=== PATIENT | female | born 1955 | race Caucasian/White ===

== ENCOUNTER 2017-10-03 17:02 | Inpatient (IN) | payer MEDICARE, MEDICAID ==
[~2017-10-03] VITALS: Ht 167.6 cm; Wt 88.7 kg
[2017-10-03] MEDS ORDERED: SODIUM CHLORIDE 0.9% 500 ML IVB ONE (17:12)
[2017-10-03] MEDS ORDERED: ONDANSETRON HCL 4 MG/2 ML VIAL IV ONE (17:15)
[2017-10-03 18:06] LABS: Urine Bacteria NONE SEEN /hpf (None Seen); Urine Blood Negative /uL (Negative); Urine Specific Gravity 1.005 (1.001-1.035); Urine WBC 1 /hpf (0 - 5)
[2017-10-03 18:21] LABS: Amphetamine Screen, Urine NEGATIVE (NEGATIVE); Barbiturate Scree,Urine NEGATIVE (NEGATIVE); Benzodiazephine Screen, Urine NEGATIVE (NEGATIVE); Cannabinoid Screen, Urine NEGATIVE (NEGATIVE); Cocaine Screen, Urine NEGATIVE (NEGATIVE); Opiate Scree,Urine NEGATIVE (NEGATIVE); Phencyclidine Screen, Urine NEGATIVE (NEGATIVE)
[2017-10-03 18:35] LABS: Basophils # (auto) 0 uL; Basophils % (auto) 0.3 % (0.0-2.0); Eosinophils # (auto) 0.2 uL; Eosinophils % (auto) 1.4 % (0.0-7.0); Hematocrit 36.7 % (36.0-46.0); Hemoglobin 12.3 g/dL (12.2-16.2); Lymphocytes % (auto) 21.3 % (10.0-50.0); Mean Corpuscular Hemoglobin 29.4 pg (28.0-32.0); Mean Corpuscular Hgb Conc. 33.5 g/dL (32.0-36.0); Mean Corpuscular Volume 87.8 fL (80.0-100.0); Monocytes # (auto) 0.6 uL; Monocytes % (auto) 4.2 % (0.0-12.0); Neutrophils # (auto) 10.1 uL; Neutrophils % (auto) 72.8 % (37.0-80.0); Nucleated Red Blood Cells % 0.1 %; Platelet Count (auto) 253 10^3/uL (140-450); Red Blood Cells 4.18 10^6/uL (4.0-5.20); Red Cell Distribution Width 12.9 % (11.8-14.3); White Blood Cell 13.9 10^3/uL (4.4-10.8)
[2017-10-03 18:54] LABS: Alanine Aminotransferase 21 U/L (13-56); Albumin 3.2 g/dL (3.4-5.0); Alkaline Phosphatase 91 U/L (45-117); Anion Gap 11 (5-15); Aspartate Aminotransferase 14 U/L (15-37); BUN/Creatinine Ratio 7.6; Bilirubin, Total 0.2 mg/dL (0.2-1.0); Blood Urea Nitrogen 9 mg/dL (7-18); Carbon Dioxide 23 mmol/L (21-32); Chloride 111 mmol/L (98-107); GFR African American 60 mL/min; GFR Non-African American 49 mL/min; Glucose 157 mg/dL (74-106); Magnesium 2.3 mg/dL (1.6-2.6); Potassium 3.4 mmol/L (3.5-5.1); Sodium 145 mmol/L (136-145); Total Protein 7.3 g/dL (6.4-8.2)
[2017-10-03] MEDS ORDERED: QUET200T3 PO (18:54)
[2017-10-03] MEDS ORDERED: DIVA500T53 PO (18:54)
[2017-10-03] MEDS ORDERED: GABA100C9 PO (18:55)
[2017-10-03] MEDS ORDERED: CARB200T4 PO (18:56)
[2017-10-03] MEDS ORDERED: CLON0.5T PO (19:00)
[2017-10-03 19:05] LABS: Lactic Acid w/Reflex 3.4 mmol/L (0.4-2.0)
[2017-10-03] MEDS ORDERED: DEXTROSE (50%) 50ML SYRG IV PRN (19:15)
[2017-10-03] MEDS ORDERED: NITROGLYCERIN 0.4 MG SL TAB SL PRN (19:15)
[2017-10-03] MEDS ORDERED: cefTRIAXone 1GM/10ml IVPUSH 10 ML IV ONE (19:15)
[2017-10-03] MEDS ORDERED: POTASSIUM CHL 10 Meq TABLET PO ONE (19:15)
[2017-10-03] MEDS ORDERED: DOCUSATE SOD 100 MG CAP PO PRN (19:15)
[2017-10-03] MEDS ORDERED: ALUM & MAG HYDROX-SIMETH LIQ(MAALOX) 30 ML PO PRN (19:15)
[2017-10-03] MEDS ORDERED: chlordiazePOXIDE HCL 25 MG CAP PO PRN (19:15)
[2017-10-03] MEDS ORDERED: MORPHINE SULFATE 4 MG/ML SYR/VIAL IV PRN ×2 (19:15)
[2017-10-03] MEDS ORDERED: ACETAMINOPHEN 325 MG TAB PO PRN (19:15)
[2017-10-03] MEDS ORDERED: TEMAZEPAM 15 MG CAP PO PRN (19:15)
[2017-10-03] MEDS: SODIUM CHLORIDE 0.9% 1,000 ML IV SCH (19:15)
[2017-10-03 20:25] LABS: Acetaminophen < 2.0 ug/mL (10-30); Salicylate < 1.7 mg/dL (2.8-20.0)
[2017-10-03] MEDS ORDERED: AZITHROMYCIN 500MG/ 250ML 250 ML IV ONE (20:45)
[2017-10-03] MEDS: FAMOTIDINE 20 MG TAB PO SCH (22:00)
[2017-10-03] MEDS ORDERED: InsuLIN REG 1unit/0.01ml Soln (100units/ml) SC SCH (22:00)
[2017-10-03] MEDS: GABAPENTIN 300 MG CAP PO SCH (22:00)
[2017-10-03] MEDS: ACCU-CHEK COMFORT CURVE STRIP VI SCH (22:00)
[2017-10-03] MEDS: ALBUTEROL SULF 2.5 MG/0.5ML(0.5%) NEB SOLN NEB SCH (22:20)
[2017-10-03] MEDS: IPRATROPIUM BROM 0.5 MG/2.5ML INH SOL NEB SCH (22:20)
[2017-10-03 22:39] VITALS: BP 93/55
[2017-10-04] MEDS: SODIUM CHLORIDE 0.9% 1,000 ML IV SCH ×2 (03:35→12:30)
[2017-10-04] MEDS: GABAPENTIN 300 MG CAP PO SCH (06:00)
[2017-10-04] MEDS: ALBUTEROL SULF 2.5 MG/0.5ML(0.5%) NEB SOLN NEB SCH ×3 (06:20→18:27)
[2017-10-04] MEDS: IPRATROPIUM BROM 0.5 MG/2.5ML INH SOL NEB SCH ×3 (06:20→18:27)
[2017-10-04 06:48] LABS: Basophils # (auto) 0.1 uL; Basophils % (auto) 0.9 % (0.0-2.0); Eosinophils # (auto) 0.2 uL; Eosinophils % (auto) 2.3 % (0.0-7.0); Hematocrit 33.8 % (36.0-46.0); Hemoglobin 11.6 g/dL (12.2-16.2); Lymphocytes # (auto) 2.4 uL; Lymphocytes % (auto) 30.5 % (10.0-50.0); Mean Corpuscular Hemoglobin 30.1 pg (28.0-32.0); Mean Corpuscular Hgb Conc. 34.3 g/dL (32.0-36.0); Mean Corpuscular Volume 87.9 fL (80.0-100.0); Monocytes # (auto) 0.5 uL; Monocytes % (auto) 5.8 % (0.0-12.0); Neutrophils # (auto) 4.8 uL; Neutrophils % (auto) 60.5 % (37.0-80.0); Platelet Count (auto) 237 10^3/uL (140-450); Red Blood Cells 3.84 10^6/uL (4.0-5.20); Red Cell Distribution Width 13.2 % (11.8-14.3); White Blood Cell 7.9 10^3/uL (4.4-10.8)
[2017-10-04 07:03] LABS: BUN/Creatinine Ratio 8.4; Bilirubin, Total 0.2 mg/dL (0.2-1.0); Calcium 8.3 mg/dL (8.5-10.1); Potassium 4.4 mmol/L (3.5-5.1); Total Protein 6.8 g/dL (6.4-8.2)
[2017-10-04] MEDS: InsuLIN REG 1unit/0.01ml Soln (100units/ml) SC SCH ×2 (08:00→12:34)
[2017-10-04] MEDS: ACCU-CHEK COMFORT CURVE STRIP VI SCH ×2 (08:40→12:30)
[2017-10-04] MEDS: Boost Glucose Control 8 Ounces PO SCH ×2 (08:43→12:30)
[2017-10-04] MEDS: cefTRIAXone 1GM/10ml IVPUSH 10 ML IV SCH (09:23)
[2017-10-04] MEDS: MULTIPLE VITAMIN TAB PO SCH (09:23)
[2017-10-04] MEDS: FAMOTIDINE 20 MG TAB PO SCH ×2 (09:23→22:21)
[2017-10-04] MEDS: AZITHROMYCIN 500MG/ 250ML 250 ML IV SCH (09:33)
[2017-10-04] MEDS: GABAPENTIN 100 MG CAP PO SCH ×2 (13:48→22:21)
[2017-10-04] MEDS: OXYBUTYNIN CHL 5 MG TAB PO SCH ×2 (13:48→22:21)
[2017-10-04] MEDS: clonazePAM 0.5 MG TAB PO SCH ×2 (13:48→20:52)
[2017-10-04] MEDS: BOOST PLUS 8 ounce PO SCH (18:04)
[2017-10-04] MEDS: QUEtiapine FUMARATE 100 MG TAB PO SCH (20:52)
[2017-10-04] MEDS: HYDROcodone-ACET 5/325MG TAB PO PRN (20:58)
[2017-10-04] MEDS: ONDANSETRON HCL 4 MG/2 ML VIAL IV PRN (21:49)
[2017-10-04] MEDS: ASCORBIC ACID 500 MG TAB PO SCH (22:21)
[2017-10-04] MEDS: carBAMazepine 200 MG TAB PO SCH (22:21)
[2017-10-04 23:46] VITALS: BP 129/75
[2017-10-05] MEDS: ALBUTEROL SULF 2.5 MG/0.5ML(0.5%) NEB SOLN NEB SCH ×4 (00:30→18:29)
[2017-10-05] MEDS: IPRATROPIUM BROM 0.5 MG/2.5ML INH SOL NEB SCH ×4 (00:30→18:28)
[2017-10-05 05:22] VITALS: BP 100/65
[2017-10-05] MEDS: OXYBUTYNIN CHL 5 MG TAB PO SCH ×3 (06:07→22:10)
[2017-10-05] MEDS: clonazePAM 0.5 MG TAB PO SCH ×3 (06:07→22:08)
[2017-10-05] MEDS: GABAPENTIN 100 MG CAP PO SCH ×3 (06:08→22:10)
[2017-10-05 07:38] LABS: BUN/Creatinine Ratio 13.4; Calcium 9.2 mg/dL (8.5-10.1); Potassium 3.9 mmol/L (3.5-5.1)
[2017-10-05 08:30] VITALS: BP 115/63
[2017-10-05] MEDS: BOOST PLUS 8 ounce PO SCH ×2 (09:42→18:00)
[2017-10-05] MEDS: AZITHROMYCIN 500MG/ 250ML 250 ML IV SCH (09:42)
[2017-10-05] MEDS: cefTRIAXone 1GM/10ml IVPUSH 10 ML IV SCH (09:42)
[2017-10-05] MEDS: carBAMazepine 200 MG TAB PO SCH ×2 (09:43→22:08)
[2017-10-05] MEDS: FAMOTIDINE 20 MG TAB PO SCH ×2 (09:43→22:10)
[2017-10-05] MEDS: MULTIPLE VITAMIN TAB PO SCH (09:43)
[2017-10-05] MEDS: ASCORBIC ACID 500 MG TAB PO SCH ×2 (09:44→22:10)
[2017-10-05 13:00] VITALS: BP 126/60
[2017-10-05] MEDS: HYDROcodone-ACET 5/325MG TAB PO PRN ×2 (13:06→17:59)
[2017-10-05] MEDS: ONDANSETRON HCL 4 MG/2 ML VIAL IV PRN (15:27)
[2017-10-05 17:00] VITALS: BP 121/61
[2017-10-05] MEDS: DOXYCYCLINE 100 MG TAB/CAP PO SCH (22:08)
[2017-10-05] MEDS: QUEtiapine FUMARATE 100 MG TAB PO SCH (22:10)
[2017-10-05 22:19] VITALS: BP 124/73
[2017-10-06] MEDS: ALBUTEROL SULF 2.5 MG/0.5ML(0.5%) NEB SOLN NEB SCH ×3 (00:25→13:05)
[2017-10-06] MEDS: IPRATROPIUM BROM 0.5 MG/2.5ML INH SOL NEB SCH ×3 (00:25→13:05)
[2017-10-06 04:29] VITALS: BP 129/78
[2017-10-06] MEDS: GABAPENTIN 100 MG CAP PO SCH ×2 (06:19→14:00)
[2017-10-06] MEDS: OXYBUTYNIN CHL 5 MG TAB PO SCH ×2 (06:20→14:00)
[2017-10-06] MEDS: clonazePAM 0.5 MG TAB PO SCH ×2 (06:20→14:00)
[2017-10-06] MEDS: BOOST PLUS 8 ounce PO SCH (09:41)
[2017-10-06] MEDS: carBAMazepine 200 MG TAB PO SCH (09:42)
[2017-10-06] MEDS: FAMOTIDINE 20 MG TAB PO SCH (09:42)
[2017-10-06] MEDS: MULTIPLE VITAMIN TAB PO SCH (09:42)
[2017-10-06] MEDS: ASCORBIC ACID 500 MG TAB PO SCH (09:43)
[2017-10-06] MEDS: DOXYCYCLINE 100 MG TAB/CAP PO SCH (09:43)
[2017-10-06] MEDS ORDERED: ASCO500T11 PO (11:46)
[2017-10-06] MEDS ORDERED: DOX100T PO (11:46)
[2017-10-06] MEDS ORDERED: LIDO1SOL MT (11:49)
[2017-10-06 12:32] VITALS: BP 127/74
== END 2017-10-06 14:15 | disposition home or self-care (01) | DRG 871 ==
LOC: EDBD 17:02 → ER 17:02 → TELE 17:03 → TELE-WESTW 10-04 23:05 → WEST WING 10-05 16:13
PROVIDERS: ADMIT Internal Medicine; ATTEND Internal Medicine
DX: A41.9 Sepsis, unspecified organism (principal); N17.0 Acute kidney failure with tubular necrosis; G92 Toxic encephalopathy; E44.0 Moderate protein-calorie malnutrition; J44.0 Chronic obstructive pulmonary disease with (acute) lower respiratory infection; J45.901 Unspecified asthma with (acute) exacerbation; E83.51 Hypocalcemia; R45.851 Suicidal ideations; J44.1 Chronic obstructive pulmonary disease with (acute) exacerbation; F10.239 Alcohol dependence with withdrawal, unspecified; J98.11 Atelectasis; E11.21 Type 2 diabetes mellitus with diabetic nephropathy; N18.3 Chronic kidney disease, stage 3 (moderate); R09.02 Hypoxemia; E11.22 Type 2 diabetes mellitus with diabetic chronic kidney disease; E11.65 Type 2 diabetes mellitus with hyperglycemia; F10.229 Alcohol dependence with intoxication, unspecified; E86.0 Dehydration; E87.6 Hypokalemia; F31.9 Bipolar disorder, unspecified; G96.8 Other specified disorders of central nervous system; J20.9 Acute bronchitis, unspecified; Z79.899 Other long term (current) drug therapy; Z68.31 Body mass index [BMI] 31.0-31.9, adult
CPT/HCPCS: 36415; 51702; 70450; 71045; 71046; 80048; 80053; 80307; 80320; 80329; 81001; 82962; 83036; 83605; 83735; 84484; 85025; 87040; 87804; 93005; 94640; 96361; 96372; 96374; 96375; 96376; 99291; J2405

== ENCOUNTER → 2018-05-15 | Outpatient (CLI) | payer MEDICARE, MEDICAID ==
[~2018-05-15] MED LIST: ASCO500T11 PO; CARB200T4 PO; CLON0.5T PO; DIVA500T53 PO; DOX100T PO; GABA100C9 PO; LIDO1SOL MT; QUET200T3 PO
[2018-05-15 14:00] LABS: Basophils # (auto) 0.1 uL; Basophils % (auto) 1.2 % (0.0-2.0); Eosinophils # (auto) 0.5 uL; Eosinophils % (auto) 6.5 % (0.0-7.0); Hematocrit 38.8 % (36.0-46.0); Hemoglobin 13.5 g/dL (12.2-16.2); Lymphocytes # (auto) 2.5 uL; Lymphocytes % (auto) 33.6 % (10.0-50.0); Mean Corpuscular Hemoglobin 29.9 pg (28.0-32.0); Mean Corpuscular Hgb Conc. 34.8 g/dL (32.0-36.0); Mean Corpuscular Volume 85.7 fL (80.0-100.0); Monocytes # (auto) 0.5 uL; Monocytes % (auto) 6.3 % (0.0-12.0); Neutrophils # (auto) 3.8 uL; Neutrophils % (auto) 52.4 % (37.0-80.0); Platelet Count (auto) 255 10^3/uL (140-450); Red Blood Cells 4.53 10^6/uL (4.0-5.20); Red Cell Distribution Width 12.7 % (11.8-14.3); White Blood Cell 7.3 10^3/uL (4.4-10.8)
[2018-05-15 14:05] LABS: Urine Bacteria FEW /hpf (None Seen); Urine Blood Negative /uL (Negative); Urine Specific Gravity 1.006 (1.001-1.035); Urine WBC 13 /hpf (0 - 5)
[2018-05-15 14:15] LABS: INR 0.96 (0.9-1.15); Partial Thromboplastin Time 25.9 sec (23.78-33.04); Prothrombin Time 10.3 sec (9.27-12.13)
[2018-05-15 15:11] LABS: Albumin 3.5 g/dL (3.4-5.0); BUN/Creatinine Ratio 14.2; Bilirubin, Total 0.2 mg/dL (0.2-1.0); Calcium 8.8 mg/dL (8.5-10.1); Potassium 3.9 mmol/L (3.5-5.1); Total Protein 7.5 g/dL (6.4-8.2)
== END | disposition home or self-care (01) ==
LOC: LAB 13:37
PROVIDERS: ATTEND Orthopaedic Surgery
DX: M23.207 Derangement of unspecified meniscus due to old tear or injury, left knee (principal); M22.42 Chondromalacia patellae, left knee; J44.9 Chronic obstructive pulmonary disease, unspecified; F32.9 Major depressive disorder, single episode, unspecified; Z79.01 Long term (current) use of anticoagulants
CPT/HCPCS: 36415; 80053; 81001; 85025; 85610; 85730

== ENCOUNTER 2018-08-05 03:23 | Emergency (ER) | payer MEDICARE, MEDICAID ==
[~2018-08-05] VITALS: Ht 154.9 cm; Wt 99.8 kg
[~2018-08-05 03:23] MED LIST changes: -ASCO500T11 PO; -DIVA500T53 PO; +DONE10TA40 PO; -DOX100T PO; +HYDR-531 PO; +OXYB15TA12 PO; -QUET200T3 PO; +QUET400T PO
[2018-08-05] MEDS ORDERED: ACETAMINOPHEN 325 MG TAB PO ONE ×2 (03:40→05:15)
[2018-08-05 05:37] LABS: Basophils # (auto) 0 uL; Basophils % (auto) 0.7 % (0.0-2.0); Eosinophils # (auto) 0.1 uL; Eosinophils % (auto) 2.4 % (0.0-7.0); Hematocrit 26.2 % (36.0-46.0); Hemoglobin 9.1 g/dL (12.2-16.2); Lymphocytes # (auto) 0.5 uL; Lymphocytes % (auto) 9.6 % (10.0-50.0); Mean Corpuscular Hgb Conc. 34.7 g/dL (32.0-36.0); Mean Corpuscular Volume 86.6 fL (80.0-100.0); Monocytes # (auto) 0.5 uL; Monocytes % (auto) 8.7 % (0.0-12.0); Neutrophils # (auto) 4.2 uL; Neutrophils % (auto) 78.6 % (37.0-80.0); Nucleated Red Blood Cells % 0.1 %; Platelet Count (auto) 240 10^3/uL (140-450); Red Blood Cells 3.02 10^6/uL (4.0-5.20); Red Cell Distribution Width 13.7 % (11.8-14.3); White Blood Cell 5.4 10^3/uL (4.4-10.8)
[2018-08-05 06:01] LABS: Albumin 2.9 g/dL (3.4-5.0); Calcium 8.6 mg/dL (8.5-10.1); Potassium 3.1 mmol/L (3.5-5.1)
[2018-08-05 06:12] LABS: BUN/Creatinine Ratio 5.9; Bilirubin, Total 0.3 mg/dL (0.2-1.0); CRP High Sensitivity 6.37 mg/dL (< 0.3); Total Protein 6.1 g/dL (6.4-8.2)
[2018-08-05 06:26] LABS: Urine Bacteria NONE SEEN /hpf (None Seen); Urine Blood Negative /uL (Negative); Urine Specific Gravity 1.006 (1.001-1.035); Urine WBC 8 /hpf (0 - 5)
[2018-08-05 08:55] VITALS: BP 135/76
== END 2018-08-05 09:17 | disposition home or self-care (01) ==
LOC: EDBD 03:23 → EDUNIT# 03:23 → ER 03:23
DX: S09.90XA Unspecified injury of head, initial encounter (principal); M25.532 Pain in left wrist; N39.0 Urinary tract infection, site not specified; E87.6 Hypokalemia; E46 Unspecified protein-calorie malnutrition; I12.9 Hypertensive chronic kidney disease with stage 1 through stage 4 chronic kidney disease, or unspecified chronic kidney disease; N18.3 Chronic kidney disease, stage 3 (moderate); J44.9 Chronic obstructive pulmonary disease, unspecified; E78.5 Hyperlipidemia, unspecified; Z79.899 Other long term (current) drug therapy; Z86.73 Personal history of transient ischemic attack (TIA), and cerebral infarction without residual deficits; Z68.41 Body mass index [BMI] 40.0-44.9, adult; Z86.711 Personal history of pulmonary embolism; W18.39XA Other fall on same level, initial encounter; Y93.89 Activity, other specified; Y99.8 Other external cause status; Y92.89 Other specified places as the place of occurrence of the external cause
CPT/HCPCS: 36415; 70450; 71045; 80053; 80320; 81001; 83605; 83880; 85025; 86141; 87040; 93005; 94761; 99284; J7030

== ENCOUNTER 2023-04-12 03:13 | Emergency (ER) | payer MEDICARE, MEDICAID ==
[~2023-04-12] VITALS: Ht 165.1 cm; Wt 79.5 kg
[~2023-04-12 03:13] MED LIST changes: +CLON-1003 PO; -CLON0.5T PO; -DONE10TA40 PO; +DONE1TAB88 PO; +GABA-1308 PO; -GABA100C9 PO; -LIDO1SOL MT; +LIDO2SOL26 MT
[2023-04-12 04:32] LABS: Basophils # (auto) 0.1 10 ^3/uL (0-0.2); Basophils % (auto) 1.2 % (0.0-2.0); Eosinophils # (auto) 0.5 10 ^3/uL (0-0.8); Hematocrit 38.2 % (36.0-46.0); Hemoglobin 12.9 g/dL (12.2-16.2); Lymphocytes % (auto) 53.6 % (10.0-50.0); Mean Corpuscular Hemoglobin 29.1 pg (28.0-32.0); Mean Corpuscular Hgb Conc. 33.8 g/dL (32.0-36.0); Mean Corpuscular Volume 86.1 fL (80.0-100.0); Monocytes # (auto) 0.6 10 ^3/uL (0-1.3); Monocytes % (auto) 8.7 % (0.0-12.0); Neutrophils # (auto) 2.2 10 ^3/uL (1.6-8.6); Neutrophils % (auto) 29.5 % (37.0-80.0); Red Blood Cells 4.44 10^6/uL (4.0-5.20); Red Cell Distribution Width 12.6 % (11.8-14.3); White Blood Cell 7.4 10^3/uL (4.4-10.8)
[2023-04-12 04:38] LABS: Alkaline Phosphatase 85 U/L (46-116); Anion Gap 8.9 (5-15); Aspartate Aminotransferase < 8 U/L (13-40); BUN/Creatinine Ratio 8.1 (10.0-20.0); Blood Urea Nitrogen 11 mg/dL (9-23); Calcium 9.4 mg/dL (8.7-10.4); Carbon Dioxide 22.1 mmol/L (20-30); Chloride 107 mmol/L (98-107); Glucose 109 mg/dL (74-106); Potassium 3.8 mmol/L (3.5-5.1); Sodium 138 mmol/L (136-145)
[2023-04-12 04:39] LABS: Albumin 4.1 g/dL (3.2-4.8); Bilirubin, Total 0.3 mg/dL (0.2-1.0); Total Protein 6.8 g/dL (5.7-8.2)
[2023-04-12 04:47] LABS: Alanine Aminotransferase < 9 U/L (7-40)
[2023-04-12 07:35] VITALS: BP 129/70; PULSE 78; RESP 16; TEMP 98.3; O2SAT 97
[2023-04-12 07:47] LABS: Urine Bacteria FEW /hpf (None Seen); Urine Blood Negative /uL (Negative); Urine Clarity Clear (Clear); Urine Color Brown (Yellow); Urine Protein, UAD Negative (Negative); Urine Specific Gravity 1.005 (1.001-1.035); Urine Urobilinogen Normal (Negative); Urine WBC 8 /hpf (0 - 5); Urine pH 5.5 (5.0-8.0)
[2023-04-12] MEDS ORDERED: NITR-87 PO (08:01)
[2023-04-12] MEDS ORDERED: NAPR-1334 PO (08:03)
== END 2023-04-12 09:02 | disposition home or self-care (01) ==
LOC: ER 03:13 → EDBD 03:13 → ER 09:02
DX: M71.21 Synovial cyst of popliteal space [Baker], right knee (principal); N39.0 Urinary tract infection, site not specified; I12.9 Hypertensive chronic kidney disease with stage 1 through stage 4 chronic kidney disease, or unspecified chronic kidney disease; N18.9 Chronic kidney disease, unspecified; J44.9 Chronic obstructive pulmonary disease, unspecified; E78.5 Hyperlipidemia, unspecified; Z86.73 Personal history of transient ischemic attack (TIA), and cerebral infarction without residual deficits; Z87.440 Personal history of urinary (tract) infections
CPT/HCPCS: 36415; 80053; 81001; 84484; 85025; 93005; 93971